=== PATIENT | male | born 1945 | race Caucasian/White ===

== ENCOUNTER → 2021-06-11 13:53 | Outpatient (BNVA) | payer BC, SELFPAY | PROVIDERS: PCP Internal Medicine; Visit Provider Urology | DX: N39.41 Urge incontinence (principal); N40.0 Benign prostatic hyperplasia without lower urinary tract symptoms | CPT/HCPCS: 51798 ==

== ENCOUNTER → 2022-06-12 14:36 | Outpatient (BNVA) | payer BC, SELFPAY | PROVIDERS: PCP Internal Medicine; Visit Provider Urology | DX: N40.0 Benign prostatic hyperplasia without lower urinary tract symptoms (principal) | CPT/HCPCS: 51798 ==

== ENCOUNTER 2023-06-09 12:44 | Outpatient (AMB) | payer BC, SELFPAY ==
--- NOTE | 2023-06-09 13:01 | MHC.OFFVIS ---
Intake Intake Visit Reasons: 1yr follow up/PVR Intake Note: Patient is Present for Follow Up Urology Medication: Dutasteride, Terazosin Antibiotic Allergies:None Blood Thinners:None PVR:0 Allergies No Known Allergies Allergy (Verified 06/11/21 13:58) HPI HPI Comments History of Present Illness Details Sebastien FLORES is a very pleasant male. He is a patient of Dr Mota. He is seen for the following urologic conditions. - lower urinary tract symptoms Doing well with terazosin 10 mg Minimal nocturia Incomplete bladder emptying Twelve month follow-up PSA PVR 0 cc Lower Urinary Tract Symptoms:? Current visit is for?further evaluation of, lower urinary tract symptoms, predominate obstructive symptoms.? Current treatment includes?08/03 , medication, alpha sandra, 5-AR.? Symptoms include?08/03 , weak stream, urine loss, nocturia (>2), and are progressing.? Results from testing include? renal/bladder us ?Yes ? date ?08/29/2019 ? PVR ?15 ? prostate size ?20 ? Testing at next visit will include?bladder scan.? [facility] Medical History (Updated 06/09/23 @ 14:00 by Rommel Metzger MD) Hyperlipidemia HTN (hypertension) BPH (benign prostatic hyperplasia) Urinary leakage Urgency incontinence Bladder outlet obstruction Surgical History History of surgery Review of Systems Const Denies chills and Denies fever(s) Card Reports no additional complaints and Denies syncope Resp Denies cough GI Denies abdominal pain and Denies heartburn Reports as per HPI and Denies change in libido Neuro Denies syncope Psych Denies change in libido Endo Denies change in libido Physical Exam Const General: cooperative, healthy appearing, comfortable and no acute distress Orientation/consciousness: patient oriented x3 HEENT Face and sinus: Yes normal facial exam Mouth: moist mucous membranes Neck Neck: Yes normal visual inspection, Yes full ROM and Yes trachea midline Chest Chest palpation & inspection: normal inspection of the chest Resp Effort & Inspection: normal respiratory effort, able to speak in complete sentences and no respiratory distress GI Inspection: Yes normal to inspection Back/Spine/Pelvis Cervical Spine: normal cervical lordosis Thoracic/Lumbar Spine: thoracic and lumbar spine normal to inspection Skin General skin exam: no rashes or lesions noted Neuro General: patient oriented x3, gait normal, tone normal and moves all extremities Extrem General: Yes normal to inspection and Yes capillary refill normal Office Procedures Post Void Residual Post Residual Void Post Void Residual (PVR): 0 [id number] Void Residual by ultrasound Assessment & Plan Assessment & Plan (1) BPH (benign prostatic hyperplasia): Code(s): N40.0 - Benign prostatic hyperplasia without lower urinary tract symptoms Qualifiers: Lower urinary tract symptom detail: urinary frequency (2) Urgency incontinence: Code(s): N39.41 - Urge incontinence Plan Twelve month follow-up Orders: Orders AMB Post Void Residual by ultrasound Today N40.0 - Benign prostatic hyperplasia without lower urinary tract symptoms Prostate Specific Antigen 364 Days N40.0 - Benign prostatic hyperplasia without lower urinary tract symptoms Patient Instructions: Imaging studies, laboratory and physical exam results were discussed and reviewed in detail. No major barriers to patient understanding were identified. An opportunity to ask questions regarding the treatment plan was provided. All questions were answered. The patient expressed understanding and agreement with the above treatment plan. The patient is aware they should contact our office by phone for worsening of their current condition or the appearance of new urologic symptoms. Compliance is encouraged with any medications and followup testing that is ordered. It is a privilege to participate in the urologic care of your patient. If you have any questions or concerns regarding treatment for the above conditions, or other urologic issues, please do not hesitate to contact me. The office telephone contact is [phone]. This note is constructed using voice recognition software. While every effort has been made to ensure accuracy senior actuarial analyst errors may have been included. Yours sincerely, Dr Rommel Metzger MD, [facility] - Urology Providers of Expert, Compassionate Care for the Genitourinary System Coding Level of Care Code Est Pt Level 4 (07690) Diagnoses BPH (benign prostatic hyperplasia) N40.0 Lower urinary tract symptom detail: urinary frequency Urgency incontinence N39.41 CPT Codes Post Residual Void - PVR CPT Code: 72791-Vmzr Void Residual by ultrasound ([id number])
== END 2023-06-09 14:01 | disposition home or self-care (01) ==
PROVIDERS: Visit Provider Urology
DX: N40.0 Benign prostatic hyperplasia without lower urinary tract symptoms (principal); N39.41 Urge incontinence
CPT/HCPCS: 99213

== ENCOUNTER → 2023-06-09 12:44 | Outpatient (BNVA) | payer BC, SELFPAY | PROVIDERS: Visit Provider Urology | DX: N40.1 Benign prostatic hyperplasia with lower urinary tract symptoms (principal); R35.0 Frequency of micturition; N39.41 Urge incontinence | CPT/HCPCS: 51798 ==

== ENCOUNTER 2023-10-08 14:29 | Outpatient (REF) | payer MEDICARE, SELFPAY ==
--- NOTE | ~2023-10-08 | US_ITS ---
EXAMINATION: US RETROPERITONEAL COMPLETE (RENAL) CLINICAL INFORMATION: BPH. COMPARISON: None available. TECHNIQUE: Real-time imaging of the kidneys and bladder. Limited visualization due to bowel gas. FINDINGS: RIGHT KIDNEY: 11.0 x 6.7 x 6.3 cm (SAG x AP x TRV). No hydronephrosis. No renal calculi. Renal cortical thickness is normal. Limited visualization. LEFT KIDNEY: 11.5 x 7.3 x 5.7 cm (SAG x AP x TRV). No hydronephrosis. No renal calculi. Renal cortical thickness is normal. Limited visualization. Upper pole 1.1 cm cyst. There is no indication for follow-up imaging. BLADDER: Moderately distended. Bilateral ureteral jets are not visualized. Prevoid bladder volume is 152 mL. Postvoid bladder volume is 12 mL. Bladder wall thickened measuring 5 mm. Diffuse trabeculations of the bladder wall. Enlarged prostate with volume 33.9 mL. Echogenic foci within the prostate are characteristic of coarse calcifications. Prominent seminal vesicles. US/US retroperitoneal comp IMPRESSION: 1. No hydronephrosis. No renal calculi. 2. Diffuse thickening of the bladder wall up to 5 mm with trabeculations. 3. Enlarged prostate with volume 33.9 mL. Echogenic foci within the prostate are characteristic of coarse calcifications. Prominent seminal vesicles.
== END 2023-10-08 14:30 | disposition home or self-care (01) ==
LOC: HO.US 14:29
PROVIDERS: PCP Internal Medicine; Visit Provider Urology
DX: N40.0 Benign prostatic hyperplasia without lower urinary tract symptoms (principal)
CPT/HCPCS: 76770

== ENCOUNTER 2023-10-19 08:41 | Outpatient (AMB) | payer MEDICARE, SELFPAY ==
--- NOTE | 2023-10-19 08:49 | MHC.OFFVIS ---
Intake Intake Visit Reasons: cytso Intake Note: Patient is Present for Cystoscopy Urology Med: Terazosin, Dutasteride Antibiotic Allergy: None Blood Thinner: Eliquis Confirmed Pharmacy: [facility] Cystoscope lot: [id number] exp:12/27/2024 Allergies No Known Allergies Allergy (Verified 10/19/23 08:54) HPI HPI Comments History of Present Illness Details Sebastien FLORES is a very pleasant male. He is a patient of Dr Mota. He is seen for the following urologic conditions. - lower urinary tract symptoms Recent issues with control of urination particularly at night On exam today has 1 to 2+ edema bilateral ankles Discussed sympathetic tone with fluid return Encouraged positional drainage in the afternoon minimize nighttime urination Discussed recent bladder ultrasound. Shows thickening with mild trabeculation. 40 cc prostate. Calcification. Cystoscopy today with grade 2 trabeculation. Minimal median lobe. Discussed potential GreenLight laser incision of the prostate. Has upcoming orthopedic assessment for hip replacement. He will contact us regarding timing. PVR 0 cc Lower Urinary Tract Symptoms:? Current visit is for?further evaluation of, lower urinary tract symptoms, predominate obstructive symptoms.? Current treatment includes?08/03 , medication, alpha sandra, 5-AR.? Symptoms include?08/03 , weak stream, urine loss, nocturia (>2), and are progressing.? Results from testing include? renal/bladder us ?Yes ? date ?08/29/2019 ? PVR ?15 ? prostate size ?20 ? Testing at next visit will include?bladder scan.? PFSH Medical History Hyperlipidemia HTN (hypertension) BPH (benign prostatic hyperplasia) Urinary leakage Urgency incontinence Bladder outlet obstruction Surgical History History of surgery Review of Systems Const Denies chills and Denies fever(s) Card Reports no additional complaints and Denies syncope Resp Denies cough GI Denies abdominal pain and Denies heartburn Reports as per HPI and Denies change in libido Neuro Denies syncope Psych Denies change in libido Endo Denies change in libido Physical Exam Const General: cooperative, healthy appearing, comfortable and no acute distress Orientation/consciousness: patient oriented x3 HEENT Face and sinus: Yes normal facial exam Mouth: moist mucous membranes Neck Neck: Yes normal visual inspection, Yes full ROM and Yes trachea midline Chest Chest palpation & inspection: normal inspection of the chest Resp Effort & Inspection: normal respiratory effort, able to speak in complete sentences and no respiratory distress GI Inspection: Yes normal to inspection Back/Spine/Pelvis Cervical Spine: normal cervical lordosis Thoracic/Lumbar Spine: thoracic and lumbar spine normal to inspection Skin General skin exam: no rashes or lesions noted Neuro General: patient oriented x3, gait normal, tone normal and moves all extremities Extrem General: Yes normal to inspection and Yes capillary refill normal Office Procedures Cystoscopy Consent Discussed risk and benefit or proposed procedure with the patient. Information consent for procedure given to the patient. Discussed technical aspects, risks, benefits and alternatives in full. Addressed all of the patient's questions and concerns regarding the procedure. The patient demonstrated knowledge and understanding. They wish to proceed with this procedure. Preparation The patient was prepped in the usual manner. A university services program associate was present and in the room. Genitalia was prepped with betadine solution in a sterile manner. Lidocaine Jelly 2% was placed into the urethra and 16Fr flexible Olympus cystoscope was inserted into the meatus after adequate lubrication. Procedure Meatus uncircumcised Urethra anterior and posterior urethra normal, annular stricture Prostatic Urethra elongated, no medican lobe Bladder examination with retroflexion of cystoscope Bladder Orifices normal shape and position Bladder Capacity medium Trabeculations Grade 2 Cellule Formation Yes Diverticulum Formation - Mucosal Erythema - Bladder Tumor - 16887-Pqudyhrars DISPOSABLE SCOPE [facility]-G FLEXIBLE SCOPE Procedure code (CPT) selection complete Office Meds lidocaine HCl 2 % mucosal jelly in applicator Performing Provider: Rommel Metzger MD Performing Location: [facility] [place] [facility] Administered by: Reginaldo Silveira LPN on 10/19/23 09:03 Dose Route Admin Location Dispensed Lot Number Expiration Date ND Machining Supervisor 10 mL intra-urethral 10 mL nitrofurantoin monohydrate/macrocrystals 100 mg capsule Performing Provider: Rommel Metzger MD Performing Location: [facility] [place] [facility] Administered by: Reginaldo Silveira LPN on 10/19/23 09:03 Dose Route Admin Location Dispensed Lot Number Expiration Date NDC Machining Supervisor 100 mg PO 1 cap naproxen 500 mg tablet Performing Provider: Rommel Metzger MD Performing Location: [facility] [place] [facility] Administered by: Reginaldo Silveira LPN on 10/19/23 09:03 Dose Route Admin Location Dispensed Lot Number Expiration Date NDC Machining Supervisor 500 mg PO 1 tab Results AMB Urinalysis, Automated UA Leukoctes 0 Nereyda/uL Last Edit by AFSHAN Hawkins on 10/19/23 09:03 UA Nitrite Negative Last Edit by AFSHAN Hawkins on 10/19/23 09:03 UA Urobilinogen 0.2 mg/dL Last Edit by AFSHAN Hawkins on 10/19/23 09:03 UA Protein 15 mg/dL Last Edit by AFSHAN Hawkins on 10/19/23 09:03 UA pH 5.0 Last Edit by AFSHAN Hawkins on 10/19/23 09:03 UA Blood 0 Reinaldo/uL Last Edit by AFSHAN Hawkins on 10/19/23 09:03 UA Specific [place] 1.030 Last Edit by AFSHAN Hawkins on 10/19/23 09:03 UA Ketone Negative Last Edit by AFSHAN Hawkins on 10/19/23 09:03 UA Bilirubin 0 mg/dL Last Edit by AFSHAN Hawkins on 10/19/23 09:03 UA Glucose 0 mg/dL Last Edit by AFSHAN Hawkins on 10/19/23 09:03 Results Reviewed Results Reviewed: Laboratory Last Values Urine pH (Auto) 5.0 10/19/23 08:55 Specific [place] (Auto) 1.030 10/19/23 08:55 Urine Protein (Auto) 15 mg/dL 10/19/23 08:55 Glucose (UA)(Auto) 0 mg/dL 10/19/23 08:55 Urine Ketones (Auto) Negative 10/19/23 08:55 Urine Blood (Auto) 0 Reinaldo/uL 10/19/23 08:55 Urine Nitrite (Auto) Negative 10/19/23 08:55 Urine Bilirubin (Auto) 0 mg/dL 10/19/23 08:55 Urine Urobilinogen (Auto) 0.2 mg/dL 10/19/23 08:55 Leukocyte Esterase (Auto) 0 Nereyda/uL 10/19/23 08:55 Assessment & Plan Assessment & Plan (1) Urgency incontinence: Code(s): N39.41 - Urge incontinence (2) BPH (benign prostatic hyperplasia): Code(s): N40.0 - Benign prostatic hyperplasia without lower urinary tract symptoms Qualifiers: Lower urinary tract symptom detail: urinary frequency Plan Would likely benefit from transurethral incision of the prostate Discussed Procedure Has upcoming orthopedic evaluation Will call once this has been confirmed Orders: Orders AMB Urinalysis Automated Today Z13.9 - Encounter for screening, unspecified AMB Cystoscopy Today N40.0 - Benign prostatic hyperplasia without lower urinary tract symptoms Patient Instructions: Imaging studies, laboratory and physical exam results were discussed and reviewed in detail. No major barriers to patient understanding were identified. An opportunity to ask questions regarding the treatment plan was provided. All questions were answered. The patient expressed understanding and agreement with the above treatment plan. The patient is aware they should contact our office by phone for worsening of their current condition or the appearance of new urologic symptoms. Compliance is encouraged with any medications and followup testing that is ordered. It is a privilege to participate in the urologic care of your patient. If you have any questions or concerns regarding treatment for the above conditions, or other urologic issues, please do not hesitate to contact me. The office telephone contact is [phone]. This note is constructed using voice recognition software. While every effort has been made to ensure accuracy telephone directory deliverer errors may have been included. Yours sincerely, Dr Rommel Metzger MD, [facility] - Urology Providers of Expert, Compassionate Care for the Genitourinary System Coding Level of Care Code Est Pt Level 4 (88669) Diagnoses Urgency incontinence N39.41 BPH (benign prostatic hyperplasia) N40.0 Lower urinary tract symptom detail: urinary frequency CPT Codes Cystoscopy - CPT: 53486-[id number] ([id number])
== END 2023-10-19 10:05 | disposition home or self-care (01) ==
LOC: HO.HUSH 08:42
PROVIDERS: PCP Internal Medicine; Visit Provider Urology
DX: N39.41 Urge incontinence (principal); N40.0 Benign prostatic hyperplasia without lower urinary tract symptoms; Z13.9 Encounter for screening, unspecified
CPT/HCPCS: 52000; 99214

== ENCOUNTER → 2023-10-19 08:41 | Outpatient (BNVA) | payer MEDICARE, SELFPAY | PROVIDERS: PCP Internal Medicine; Visit Provider Urology | DX: N39.41 Urge incontinence (principal); N40.0 Benign prostatic hyperplasia without lower urinary tract symptoms | CPT/HCPCS: 52000; 81003; 99212 ==

== ENCOUNTER 2023-12-06 10:10 | Day surgery (SDC) | payer MEDICARE, SELFPAY ==
[2023-12-06] VITALS (8 sets, daily range): BP systolic 140–158; BP diastolic 63–87; PULSE 67–76; RESP 16–20; TEMP 36.1–37.1; O2SAT 96–99; BMI 26.1
--- NOTE | 2023-12-06 10:50 | HO.ANESPROP2 ---
[facility] Active Problems Active Problems: All Active Problems Urgency incontinence (Acute) BPH (benign prostatic hyperplasia) (Acute) Past Medical History Medical History Hyperlipidemia HTN (hypertension) BPH (benign prostatic hyperplasia) Urinary leakage Urgency incontinence Bladder outlet obstruction Family History Family history of problems with anesthesia: No Surgical History Surgical History History of surgery History of Problems with Anesthesia: No Social History Social History Patient Tobacco Use Status: Never used Tobacco Meds Allergies Allergy/AdvReac Type Severity Reaction Status Date / Time No Known Allergies Allergy Verified 12/06/23 11:06 Home Medications ?Medication ?Instructions ?Recorded ?Confirmed ?Last Taken ?Type apixaban 5 mg tablet (Eliquis) 5 mg PO BID 06/11/21 12/06/23 11/30/23 History chlorthalidone 25 mg tablet 25 mg PO DAILY 06/11/21 12/06/23 Unknown History dutasteride 0.5 mg capsule 0.5 mg PO DAILY 06/11/21 12/06/23 Unknown History metoprolol succinate 100 mg 100 mg PO DAILY 06/11/21 12/06/23 Unknown History tablet,extended release 24 hr peg 3350 240 gram-electrolytes 4,000 ml PO DIRECTED 06/11/21 12/06/23 Unknown History 22.72 gram-6.72 g-5.84 g powdr for soln (Gavilyte-C) rosuvastatin 40 mg tablet 40 mg PO DAILY 06/11/21 12/06/23 Unknown History Exam Airway Mallampati Class: II TM Dist: >3cm Neck ROM: Full Heart: RRR Lungs: CTA Assessment and Plan Assessment Anesthesia Assessment: Anesthesia Plan Discussed Final Anesthetic Review Family History of Problems with Anesthesia: No History of Problems with Anesthesia: No NPO: Yes ASA Class: II Final Preanesthetic Review: Meds/Allgs Chart Reviewed, Consent Obtained/Reviewed and Anes Risks/Benef Reviewed Patient Risk: Intermediate Procedure Risk: Low Anesthetic Plan Anesthetic Plan: GA Disposition: Standard PACU
[2023-12-06] MEDS: Lactated Ringers 1,000 ML 80 ML IVCONT (10:55)
--- NOTE | 2023-12-06 11:59 | MHC.SHP ---
Pre-Procedural Eval Section A - 24 Hr Update-Section A only Date of Service: 12/06/23 The patient is an INPATIENT: No Changes since office visit: No Cold of Flu in the past 2 weeks, No New Medical Problems, No Changes in Medication and No Patient answered all questions The patient has been examined within 24 hours of the surgical procedure. The History & Physical has been completed within 30 days and I have reviewed it.: No Section B - Complete if H&P > 30 days Chief Complaint: Benign prostatic hyperplasia without lower urinary Details of Present Illness: Progressive bladder outlet obstruction Relevant Family History (Specify if Yes): No Relevant Social History: None Present Medications: see Short Stay Collaborative assessment Medical History: No relevant PMH History of Previous Operations: No relevant previous surgery Allergies: Allergies Allergy/AdvReac Type Severity Reaction Status Date / Time No Known Allergies Allergy Verified 12/06/23 11:06 Review of Systems Sugical H&P ROS: Negative: Constitution, Cardiovascular, Respiratory, Neurological, Psychiatric, Hem-Onc, Allergic/Immunologic, Gastrointestinal, Genitourinary, Musculoskeletal, Integumentary, Endocrine and Eyes/Ears/Nose/Throat Exam Surgical H&P Exam: Normal: HEENT, Normal: Heart, Normal: Lungs, Normal: Extremities, Normal: Abdomen, Normal: Skin and Normal: Neurological Plan Diagnosis/Plan: Unchanged (Cystoscopy with GreenLight laser with the prostate, possible transurethral incision of the prostate) I have reviewed the history and physical and performed a pertinent physical examination on my patient. No changes have occurred unless specified. Time Spent With Patient Time: Total time managing care of this patient today ____ minutes.
--- NOTE | 2023-12-06 12:40 | P.OP_ITS ---
Operative Note Operative Note Date of Service: 12/06/23 Narrative: PreOperative Diagnosis: Bladder outlet obstruction Post Operative Diagnosis: Bladder outlet obstruction Procedure: GreenLight Laser Enucleation of the prostate CPT 97217 Surgeon: Dr Rommel Metzger Anesthesia: General Indications for procedure: Progressive symptoms on alpha blockers History of bladder outlet obstruction. Treated with alpha-sandra and other medications. Still with symptoms. On cystoscopy in office has tight bladder neck. Recommendation for prostate procedure with laser enucleation of prostate. Risks and benefits have been discussed. Focus was placed on development of retrograde ejaculation which is a normal part of this procedure. Procedure: After informed consent was verified the patient was brought to the operating room and placed in a supine position. Anesthesia was administered per protocol. Patient was placed in modified dorsal lithotomy position and prepped and draped in a sterile fashion. Safety pause time-out was confirmed. Antibiotics have been given. A Twenty-four Albanian laser cystoscope was inserted per urethra. No abnormalities were found of the anterior and bulbar urethra. The bladder was examined and both ureteric orifices were seen in their normal positions away from the area of interest. Grade 2 trabeculation. Debris within base of bladder. Erythema of bladder lining Using a GreenLight laser with settings of 80 w incisions were made at the 5 and 7 o'clock position. The incisions were taken down from the bladder neck down to the level of the veru. These were gradually deepened in order to define the lateral aspects of the median lobe area. Once clearly defined they will also extended in the lateral directions in order to create a deep groove. The median lobe was then ablated and enucleated tissue released into the bladder with the laser power increased to 120 W. Multiple small prostate stones seen at the surgical capsule throughout the median lobe area of the prostate Minimal lateral lobes. When this was had been completed debris and pieces of prostate were removed from the bladder with irrigation. Both ureteric orifices were reviewed again in shown to be patent in away from any areas of energy damage. The apical area was reviewed in any stray ooze was controlled. A 22 Albanian 30 cc balloon Barfield catheter was placed over a stylet into the bladder. Clear efflux was obtained upopn irrigation with a Rachid piston syringe. 30 cc was placed in the balloon and gentle traction was placed. A snap was used to hold tension on the catheter to control bleeding during patient moved and transported. A drainage bag was placed. Once transportation is complete to the PACU the snap will be removed. The patient tolerated the procedure well, he was extubated in the operating and transferred in a stable condition to the recovery area. Total Power 22 kW Lasing time 4:30 Pathology: Prostate tissue Drains: Barfield catheter
== END 2023-12-06 14:25 | disposition home or self-care (01) ==
PROVIDERS: PCP Internal Medicine; Visit Provider Urology
PROC: (CPT 52648; principal; 2023-12-06 12:30)
DX: N40.1 Benign prostatic hyperplasia with lower urinary tract symptoms (principal); N32.0 Bladder-neck obstruction; N39.41 Urge incontinence; N42.0 Calculus of prostate; N32.89 Other specified disorders of bladder; I10 Essential (primary) hypertension; E78.5 Hyperlipidemia, unspecified; Z79.899 Other long term (current) drug therapy
CPT/HCPCS: 52649; J1100; J1956; J2250; J2405; J2704; J3010

== ENCOUNTER → 2023-12-06 10:10 | Outpatient (BNV) | payer MEDICARE, SELFPAY | PROVIDERS: PCP Internal Medicine; Visit Provider Urology | DX: N40.0 Benign prostatic hyperplasia without lower urinary tract symptoms (principal) | CPT/HCPCS: 52649 ==

== ENCOUNTER → 2023-12-08 10:10 | Outpatient (BNVA) | payer MEDICARE, SELFPAY | PROVIDERS: PCP Internal Medicine; Visit Provider Urology ==

== ENCOUNTER 2024-01-11 09:30 | Outpatient (AMB) | payer MEDICARE, SELFPAY ==
--- NOTE | 2024-01-11 09:36 | MHC.OFFVIS ---
Intake Visit Reasons: [facility] follow up Intake Note: Patient is Present for Follow Up Urology Medication: Dutasteride, Terazosin Antibiotic Allergies:None Blood Thinners:None PVR:77 Allergies No Known Allergies Allergy (Verified 12/06/23 11:06) Medication List - Last Reconciled 01/11/24 by Rommel Metzger MD apixaban (Eliquis) 5 mg PO BID chlorthalidone 25 mg PO DAILY metoprolol succinate ER 100 mg PO DAILY peg 3350-electrolytes 240-22.72-6.72 -5.84 gram (Gavilyte-C) 4,000 mL PO DIRECTED rosuvastatin 40 mg PO DAILY sulfamethoxazole-trimethoprim 400-80 mg (Bactrim) 1 tab PO BEDTIME 90 days sulfamethoxazole-trimethoprim 800-160 mg (Bactrim DS) 1 tab PO BID 7 days terazosin 10 mg (2 x 5 mg) PO BEDTIME 90 days HPI Comments Details: Sebastien FLORES is a very pleasant male. He is a patient of Dr Mota. He is seen for the following urologic conditions. - lower urinary tract symptoms Follow-up from [facility] laser prostate incision Was noted to have chronic cystitis at time of procedure Was placed on suppression trimethoprim Still with urgency particularly nocturia Has restricted physical access to bathroom Trial Myrbetriq Continue with suppression trimethoprim Cystoscopy with grade 2 trabeculation. Minimal median lobe. PVR 70 cc Lower Urinary Tract Symptoms:? Current visit is for?further evaluation of, lower urinary tract symptoms, predominate obstructive symptoms.? Current treatment includes?08/03 , medication, alpha sandra, 5-AR.? Symptoms include?08/03 , weak stream, urine loss, nocturia (>2), and are progressing.? Results from testing include? renal/bladder us ?Yes ? date ?08/29/2019 ? PVR ?15 ? prostate size ?20 ? Testing at next visit will include?bladder scan.? [facility] Medical History Hyperlipidemia HTN (hypertension) BPH (benign prostatic hyperplasia) Urinary leakage Urgency incontinence Bladder outlet obstruction Surgical History History of surgery Social History Patient Tobacco Use Status: Never used Tobacco Review of Systems Const Denies chills and Denies fever(s) Card Reports no additional complaints and Denies syncope Resp Denies cough GI Denies abdominal pain and Denies heartburn Reports as per HPI and Denies change in libido Neuro Denies syncope Psych Denies change in libido Endo Denies change in libido Physical Exam Const General: cooperative, healthy appearing, comfortable and no acute distress Orientation/consciousness: patient oriented x3 HEENT Face and sinus: Yes normal facial exam Mouth: moist mucous membranes Neck Neck: Yes normal visual inspection, Yes full ROM and Yes trachea midline Chest Chest palpation & inspection: normal inspection of the chest Resp Effort & Inspection: normal respiratory effort, able to speak in complete sentences and no respiratory distress GI Inspection: Yes normal to inspection Back/Spine/Pelvis Cervical Spine: normal cervical lordosis Thoracic/Lumbar Spine: thoracic and lumbar spine normal to inspection Skin General skin exam: no rashes or lesions noted Neuro General: patient oriented x3, gait normal, tone normal and moves all extremities Extrem General: Yes normal to inspection and Yes capillary refill normal Office Procedures Post Void Residual Post Residual Void Post Void Residual (PVR): 77 50910-Xppc Void Residual by ultrasound Results AMB Urinalysis, Automated UA Leukoctes 70 Nereyda/uL Last Edit by Margaret Solo CMA on 01/11/24 10:12 UA Nitrite Negative Last Edit by Margaret Solo CMA on 01/11/24 10:12 UA Urobilinogen 0.2 mg/dL Last Edit by Margaret Solo CMA on 01/11/24 10:12 UA Protein 30 mg/dL Last Edit by Margaret Solo CMA on 01/11/24 10:12 UA pH 6.0 Last Edit by Margaret Solo CMA on 01/11/24 10:12 UA Blood 200 Reinaldo/uL Last Edit by Margaret Solo CMA on 01/11/24 10:12 UA Specific [place] 1.020 Last Edit by Margaret Solo CMA on 01/11/24 10:12 UA Ketone Negative Last Edit by Margaret Solo CMA on 01/11/24 10:12 UA Bilirubin 0 mg/dL Last Edit by Margaret Solo CMA on 01/11/24 10:12 UA Glucose 0 mg/dL Last Edit by Margaret Solo CMA on 01/11/24 10:12 Results Reviewed Results Reviewed: Laboratory Last Values Urine pH (Auto) 6.0 01/11/24 10:06 Specific [place] (Auto) 1.020 01/11/24 10:06 Urine Protein (Auto) 30 mg/dL 01/11/24 10:06 Glucose (UA)(Auto) 0 mg/dL 01/11/24 10:06 Urine Ketones (Auto) Negative 01/11/24 10:06 Urine Blood (Auto) 200 Reinaldo/uL 01/11/24 10:06 Urine Nitrite (Auto) Negative 01/11/24 10:06 Urine Bilirubin (Auto) 0 mg/dL 01/11/24 10:06 Urine Urobilinogen (Auto) 0.2 mg/dL 01/11/24 10:06 Leukocyte Esterase (Auto) 70 Nereyda/uL 01/11/24 10:06 Assessment & Plan Assessment & Plan (1) Urgency incontinence: Code(s): N39.41 - Urge incontinence Category: Medical (2) BPH (benign prostatic hyperplasia): Code(s): N40.0 - Benign prostatic hyperplasia without lower urinary tract symptoms Category: Medical Qualifiers: Lower urinary tract symptom detail: urinary frequency (3) Chronic cystitis: Code(s): N30.20 - Other chronic cystitis without hematuria Category: Medical Plan Trial Myrbetriq Two month follow-up Orders: Orders AMB Post Void Residual by ultrasound 01/11/24 N39.8 - Other specified disorders of urinary system AMB Urinalysis Automated 01/11/24 Z13.9 - Encounter for screening, unspecified AMB Post Void Residual by ultrasound 01/11/24 N39.41 - Urge incontinence Medications: New mirabegron ER (Myrbetriq) 25 mg PO DAILY 30 tabs 1RF 30 days N39.41 - Urge incontinence, R39.15 - Urgency of urination, N30.10 - Interstitial cystitis (chronic) without hematuria, R35.1 - Nocturia, N32.81 - Overactive bladder Patient Instructions: Imaging studies, laboratory and physical exam results were discussed and reviewed in detail. No major barriers to patient understanding were identified. An opportunity to ask questions regarding the treatment plan was provided. All questions were answered. The patient expressed understanding and agreement with the above treatment plan. The patient is aware they should contact our office by phone for worsening of their current condition or the appearance of new urologic symptoms. Compliance is encouraged with any medications and followup testing that is ordered. It is a privilege to participate in the urologic care of your patient. If you have any questions or concerns regarding treatment for the above conditions, or other urologic issues, please do not hesitate to contact me. The office telephone contact is [phone]. This note is constructed using voice recognition software. While every effort has been made to ensure accuracy belt turner errors may have been included. Yours sincerely, Dr Rommel Metzger MD, ZIG[facility] - Urology Providers of Expert, Compassionate Care for the Genitourinary System Coding Level of Care Code Est Pt Level 4 (35429) Diagnoses Urgency incontinence N39.41 BPH (benign prostatic hyperplasia) N40.0 Lower urinary tract symptom detail: urinary frequency Chronic cystitis N30.20 CPT Codes Post Residual Void - PVR CPT Code: 87636-Fqhf Void Residual by ultrasound ([id number])
== END 2024-01-11 10:28 | disposition home or self-care (01) ==
PROVIDERS: PCP Internal Medicine; Visit Provider Urology
DX: N39.41 Urge incontinence (principal); N40.0 Benign prostatic hyperplasia without lower urinary tract symptoms; N30.20 Other chronic cystitis without hematuria
CPT/HCPCS: 99024

== ENCOUNTER → 2024-01-11 09:30 | Outpatient (BNVA) | payer MEDICARE, SELFPAY | PROVIDERS: PCP Internal Medicine; Visit Provider Urology | DX: N39.41 Urge incontinence (principal); N40.0 Benign prostatic hyperplasia without lower urinary tract symptoms; N30.20 Other chronic cystitis without hematuria | CPT/HCPCS: 51798; 81003; 99212 ==

== ENCOUNTER 2024-06-09 13:28 | Outpatient (AMB) | payer BC, SELFPAY ==
--- NOTE | 2024-06-09 13:34 | A.OFFVIS_ITS ---
Intake Visit Reasons: 1Y PVR Intake Note: Patient is present for PVR Follow UP Urology Med: Gemtesa,Terazosin Antibiotic Allgery: None Blood Thinner: Eliquis Last PVR: 77ml Todays PVR: 0ml Senior Adults Director Required: No Automatic Driller And Reamer: Automatic Driller And Reamer Present Accompanied by: Spouse Allergies No Known Allergies Allergy (Verified 06/09/24 13:38) HPI Comments Details: Sebastien FLORES is a very pleasant male. He is a patient of Dr Mota. He is seen for the following urologic conditions. - lower urinary tract symptoms PVR today 0 cc Still waking 2-3 times at night Continue beta agonist Stay on methenamine single tab daily for next three-month Cease alpha-sandra Does note has lower limb edema. Left posterior calf weeping from skin break down. Referral to Wound Care for lower limb assessment. Lower Urinary Tract Symptoms:? Cystoscopy with grade 2 trabeculation Had laser incision of the prostate Noted chronic cystitis at time of procedure and placed on 90 days suppression trimethoprim ? Current visit is for?further evaluation of, lower urinary tract symptoms, predominate obstructive symptoms.? Current treatment includes?08/03 , medication, alpha sandra, 5-AR.? Symptoms include?08/03 , weak stream, urine loss, nocturia (>2), and are progressing.? Results from testing include? renal/bladder us ?Yes ? date ?08/29/2019 ? PVR ?15 ? prostate size ?20 ? Testing at next visit will include?bladder scan.? [facility] Medical History Hyperlipidemia HTN (hypertension) BPH (benign prostatic hyperplasia) Urinary leakage Urgency incontinence Bladder outlet obstruction Surgical History History of surgery Social History Patient Tobacco Use Status: Never used Tobacco Review of Systems Const Denies chills and Denies fever(s) Card Reports no additional complaints and Denies syncope Resp Denies cough GI Denies abdominal pain and Denies heartburn Reports as per HPI and Denies change in libido Neuro Denies syncope Psych Denies change in libido Endo Denies change in libido Physical Exam Const General: cooperative, healthy appearing, comfortable and no acute distress Orientation/consciousness: patient oriented x3 HEENT Face and sinus: Yes normal facial exam Mouth: moist mucous membranes Neck Neck: Yes normal visual inspection, Yes full ROM and Yes trachea midline Chest Chest palpation & inspection: normal inspection of the chest Resp Effort & Inspection: normal respiratory effort, able to speak in complete sentences and no respiratory distress GI Inspection: Yes normal to inspection Back/Spine/Pelvis Cervical Spine: normal cervical lordosis Thoracic/Lumbar Spine: thoracic and lumbar spine normal to inspection Skin General skin exam: no rashes or lesions noted Neuro General: patient oriented x3, gait normal, tone normal and moves all extremities Extrem General: Yes normal to inspection and Yes capillary refill normal Office Procedures Post Void Residual Post Residual Void Post Void Residual (PVR): 10 55521-Hnpi Void Residual by ultrasound Assessment & Plan Assessment & Plan (1) BPH (benign prostatic hyperplasia): Code(s): N40.0 - Benign prostatic hyperplasia without lower urinary tract symptoms Category: Medical Qualifiers: Lower urinary tract symptom detail: urinary frequency (2) Chronic cystitis: Code(s): N30.20 - Other chronic cystitis without hematuria Category: Medical Plan Referral wound clinic Six-month follow-up Orders: Orders US bladder 10/08/23 N39.41 - Urge incontinence AMB Post Void Residual by ultrasound 06/09/24 N40.0 - Benign prostatic hyperplasia without lower urinary tract symptoms Patient Instructions: Imaging studies, laboratory and physical exam results were discussed and reviewed in detail. No major barriers to patient understanding were identified. An opportunity to ask questions regarding the treatment plan was provided. All questions were answered. The patient expressed understanding and agreement with the above treatment plan. The patient is aware they should contact our office by phone for worsening of their current condition or the appearance of new urologic symptoms. Compliance is encouraged with any medications and followup testing that is ordered. It is a privilege to participate in the urologic care of your patient. If you have any questions or concerns regarding treatment for the above conditions, or other urologic issues, please do not hesitate to contact me. The office telephone contact is [phone]. This note is constructed using voice recognition software. While every effort has been made to ensure accuracy records analysis manager errors may have been included. Yours sincerely, Dr Rommel Metzger MD, [facility]IG[facility] - Urology Providers of Expert, Compassionate Care for the Genitourinary System Coding Level of Care Code Est Pt Level 3 (98561) Diagnoses BPH (benign prostatic hyperplasia) N40.0 Lower urinary tract symptom detail: urinary frequency Chronic cystitis N30.20 CPT Codes Post Residual Void - PVR CPT Code: 93407-Miqu Void Residual by ultrasound ([id number])
== END 2024-06-09 14:10 | disposition home or self-care (01) ==
PROVIDERS: PCP Internal Medicine; Visit Provider Urology
DX: N40.0 Benign prostatic hyperplasia without lower urinary tract symptoms (principal); N30.20 Other chronic cystitis without hematuria
CPT/HCPCS: 99213

== ENCOUNTER → 2024-06-09 13:28 | Outpatient (BNVA) | payer BC, SELFPAY | PROVIDERS: PCP Internal Medicine; Visit Provider Urology | DX: N40.1 Benign prostatic hyperplasia with lower urinary tract symptoms (principal); R35.0 Frequency of micturition; N30.20 Other chronic cystitis without hematuria | CPT/HCPCS: 51798 ==

== ENCOUNTER 2024-12-08 13:12 | Outpatient (AMB) | payer BC, SELFPAY ==
--- NOTE | 2024-12-08 13:18 | MHC.OFFVIS ---
Intake Visit Reasons: 6m/PVR/UA Intake Note: Patient is present for 6M/PVR/UA Urology Medication: NONE Antibiotic Allergy:NONE Blood Thinner:APIXABAN TODAY'S PVR:14ML'S Legislative Correspondent Required: No Allergies No Known Allergies Allergy (Verified 12/08/24 13:20) HPI Comments Details: Sebastien FLORES is a very pleasant male. He is a patient of Dr Mota. He is seen for the following urologic conditions. - lower urinary tract symptoms PVR today 0 cc Still waking 2-3 times at night Continue beta agonist Stay on methenamine single tab daily for next three-month Cease alpha-sandra Does note has lower limb edema. Left posterior calf weeping from skin breakdown. Referral to Wound Care for lower limb assessment. Lower Urinary Tract Symptoms:? Cystoscopy with grade 2 trabeculation Had laser incision of the prostate Noted chronic cystitis at time of procedure and placed on 90 days suppression trimethoprim ? Current visit is for?further evaluation of, lower urinary tract symptoms, predominate obstructive symptoms.? Current treatment includes?08/03 , medication, alpha sandra, 5-AR.? Symptoms include?08/03 , weak stream, urine loss, nocturia (>2), and are progressing.? Results from testing include? renal/bladder us ?Yes ? date ?08/29/2019 ? PVR ?15 ? prostate size ?20 ? Testing at next visit will include?bladder scan.? [facility] Medical History Hyperlipidemia HTN (hypertension) BPH (benign prostatic hyperplasia) Urinary leakage Urgency incontinence Bladder outlet obstruction Surgical History History of surgery Social History Patient Tobacco Use Status: Never used Tobacco Office Procedures Post Void Residual Post Residual Void Post Void Residual (PVR): 14 33229-Btqu Void Residual by ultrasound Results AMB Urinalysis, Automated UA Leukoctes 0 Nereyda/uL Last Edit by MANJINDER Quintana on 12/08/24 13:36 UA Nitrite Negative Last Edit by Emanuel Elizabeth [facility] on 12/08/24 13:36 UA Urobilinogen 0.2 mg/dL Last Edit [facility] on 12/08/24 13:36 UA Protein 15 mg/dL Last Edit by Emanuel Elizabeth [facility] on 12/08/24 13:36 UA pH 6.0 Last Edit by Emanuel Elizabeth [facility] on 12/08/24 13:36 UA Blood 0 Reinaldo/uL Last Edit by Emanuel Elizabeth [facility] on 12/08/24 13:36 UA Specific [place] 1.020 Last Edit [facility] on 12/08/24 13:36 UA Ketone Negative Last Edit by Emanuel Elizabeth [facility] on 12/08/24 13:36 UA Bilirubin 0 mg/dL Last Edit by Emanuel Elizabeth [facility] on 12/08/24 13:36 UA Glucose 0 mg/dL Last Edit by Emanuel Elizabeth [facility] on 12/08/24 13:36 Assessment & Plan Assessment & Plan (1) Nocturia more than twice per night: Code(s): R35.1 - Nocturia Category: Medical Orders: Orders AMB Urinalysis Automated Today Z13.9 - Encounter for screening, unspecified Basic Metabolic Panel 2 Weeks R35.1 - Nocturia Medications: Discontinued sulfamethoxazole-trimethoprim 800-160 mg (Bactrim DS) Discontinued Reason: Doctor's Order 1 tab PO BID 7 days 14 tabs 0RF sulfamethoxazole-trimethoprim 400-80 mg (Bactrim) use daily for 3 months Discontinued Reason: Patient Completed Course 1 tab PO BEDTIME 90 days 90 tabs 0RF N30.20 - Other chronic cystitis without hematuria Coding Diagnoses Nocturia more than twice per night R35.1 CPT Codes Post Residual Void - PVR CPT Code: 82021-Dbqf Void Residual by ultrasound ([id number])
--- OUTSIDE RECORDS SUMMARY | 2024-12-08 13:55 | XMS_ITS | Clinical Summary ---
Author Organization [facility] Address [address] [place] [phone] Phone Care Team Providers Care Technology Sales Consultant Name Role Phone Ceci Mota MD Primary Care Provider [phone] Allergies No known active allergies Medications metoprolol succinate (TOPROL-XL) 25 mg 24 hr tablet Take 0.5 tablets (12.5 mg total) by mouth 1 (one) time each day. 45 tablet 3 4 Active rosuvastatin (CRESTOR) 40 mg tablet Take 1 tablet (40 mg total) by mouth 1 (one) time each day. 90 tablet 3 4 Active furosemide (LASIX) 20 mg tabletIndicatio ns:Shortness of breath,Mitral valve insufficiency, unspecified etiology Take 1 tablet (20 mg total) by mouth 1 (one) time each day. 30 each 11 4 025 Active apixaban (Eliquis) 5 mg tablet TAKE 1 TABLET BY MOUTH TWICE DAILY 180 tablet 1 5 Active apixaban (Eliquis) 5 mg tablet Take 1 tablet (5 mg total) by mouth 2 (two) times a day. 90 tablet 3 4 025 Discontinued Active Problems Problem Noted Date Diagnosed Date Mitral valve insufficiency 12/23/2023 Assessment & Plan (08/11/2024 2:12 PM EST): See plan for shortness of breath. Orders: Basic metabolic panel; Future furosemide (LASIX) 20 mg tablet; Take 1 tablet (20 mg total) by mouth 1 (one) time each day. Newly recognized heart murmur 12/23/2023 Overview (07/03/2024): Last Assessment & Plan: As below; we will update echocardiogram for further evaluation. Location of murmur is consistent with mitral valve and this may indicate worsening insufficiency. We will continue to readdress once report is reviewed. Osteoarthritis of left hip 12/23/2023 Peripheral edema 12/23/2023 Secondary hypercoagulable state ([facility] V24) Shortness of breath 12/23/2023 Overview (07/03/2024): Last Assessment & Plan: The patient presents today for preoperative cardiovascular exam with new reports of shortness of breath with exertion. However, it is difficult to tell whether this is because he is doing something more exertional than what he is typically used to whether is due to a change in his health. Further concern as presented by new murmur noted on exam; the patient does have a history of mild mitral regurgitation noted on previous echocardiogram but this murmur has not previously been documented. In combination with new shortness of breath as well as lower extremity edema, we will proceed with an echocardiogram to reevaluate for new or worsening structural heart disease. I have discussed this with Dr. Vega, the patient's primary pesticide applicator, and he is in agreement with this plan. Given his shortness of breath with exertion and history of hyperlipidemia, we must consider that this may be his anginal equivalent; EKG reviewed with Dr. Vega as well given presence of questionable Q waves in septal leads, which may be due to lead placement and. We will initiate further evaluation of this with echocardiogram and proceed with stress testing if further indicated. The patient verbalizes understanding of this and is in agreement with this plan. Assessment & Plan (08/11/2024 2:12 PM EST): Bilateral lower extremity noted. Patient has had recent EFRAIN over the summer to further evaluate for severity of MR which was noted to be moderate. At this time given his worsening swelling, slight abdominal distention and shortness of breath I am going to initiate Lasix 20 mg daily. I have asked the patient to have an updated BMP drawn in 1 week. Encouraged to continue to follow a low-sodium diet and perform daily weights. Patient will reach out to our office with a weight gain of 2 pounds in 1 day or 5 pounds in 5 days accompanied by worsening peripheral edema, shortness of breath or abdominal distention. Orders: Basic metabolic panel; Future furosemide (LASIX) 20 mg tablet; Take 1 tablet (20 mg total) by mouth 1 (one) time each day. Atrial fibrillation, persistent (CMS/HCC V24, CM S/HCC V28) 04/16/2021 Overview (07/03/2024): Rate control strategy with metoprolol Anticoagulated with apixaban Last Assessment & Plan: The patient's atrial fibrillation is rate controlled on his current dose of beta-blockade; he remains anticoagulated on full dose of apixaban which is the appropriate dose for his age, weight, and renal function. We discussed the risks and benefits of continuing with anticoagulation for cardioembolic prophylaxis and he wishes to continue with the current plan. He is aware to seek emergent medical attention for any uncontrolled bleeding, signs or symptoms of GI or other internal bleeding, or for any head injury. Assessment & Plan (08/11/2024 2:12 PM EST): Patient denies perception of arrhythmia. He presents in atrial flutter today with a controlled ventricular heart rate as outlined above. We again discussed the importance of anticoagulation to help reduce stroke. Patient adamantly admits compliance with his medications however after reaching out to the pharmacy it is unclear whether or not he is using a different pharmacy that is on file. He is unable to provide us with any other information and his is uncertain of whether or not he has been taking his medications or where he gets them filled. The patient is agreeable to continue/resume anticoagulation therapy. Subsequently, we have sent a prescription for Eliquis 5 mg to his pharmacy of choice. Educated on risks and benefits of continuing with anticoagulation including increased risk for hemorrhage and decreased risk for stroke. Encouraged to seek emergent medical attention should the patient sustain a fall involving a head strike. The patient understands these risks and agrees to continue. Orders: ECG 12 lead Basic metabolic panel; Future Essential hypertension 04/16/2021 Overview (07/03/2024): Last Assessment & Plan: Blood pressure is well-controlled on current medical therapy; continue metoprolol. Mixed hyperlipidemia 04/16/2021 Overview (07/03/2024): Last Assessment & Plan: Most recent lipid panel revealing an LDL of 76; continue rosuvastatin. Assessment & Plan (08/11/2024 2:12 PM EST): He will continue on his current dose of rosuvastatin and be mindful of his dietary fat intake. Thoracic aortic aneurysm without rupture (CMS/HC C V24) 04/16/2021 Overview (07/03/2024): 09/2020 stable aortic root at 4.2 cm and ascending aorta at 4.4 cm Last Assessment & Plan: Most recent echocardiogram 04/29/2023 with stable findings; we will continue to monitor this with serial imaging. Surgical History Surgery Date Site/Laterality Comments ROTATOR CUFF REPAIR 11/2005 PROCEDURE: HISTORICAL ROTATOR CUFF REPAIR FOOT SURGERY Left PROCEDURE: HISTORICAL FOOT SURGERY; COMMENT: Fracture of foot Medical History Medical History Date Comments Osteoarthritis of hip DX:Osteoar thritis of hip; COMMENT: RT Social History Tobacco Use Types Packs/Day Years Used Date Smoking Tobacco: Never Smokeless Tobacco: Never Alcohol Use Standard Drinks/Week Comments Yes 0 (1 standard drink = 0.6 oz pur e alcohol) wine daily Sex and Gender Information Value Date Recorded Sex Assigned at Male 06/16/2024 1:56 PM EDT Legal Sex Male 7:01 AM EST Gender Identity Male 06/16/2024 1:56 PM EDT Sexual Orientation Straight 06/16/2024 1: 56 PM EDT Obstetrics History Last Filed Vital Signs Vital Sign Reading Time Taken Comments Blood Pressure 136/56 08/11/2024 9:56 AM EST Pulse 72 12/23/2023 9:19 AM EDT Temperature - - Respiratory Rate - - Oxygen Saturation 98% 08/11/2024 9:56 AM EST Inhaled Oxygen Concentration - - Weight 74.8 kg (165 lb) 08/11/2024 9:56 AM EST Height 167.6 cm (5' 6 ) 12/24/2023 9:45 AM EDT Body Mass Index 26.63 12/24/2023 9:45 AM EDT Plan of Treatment Upcoming Encounters Date Type Department Care Team (Late st Contact Info) Description 12/13/2024 9:10 AM EDT Office Visit [facility] [address] [place] [address] Keena Glover, DARNELL [address] [place] [address] Health Maintenance Due Date Last Done Comments DTaP,Tdap,and Td Vaccines (1 - Tdap) 02/05/1963 Pneumococcal Vaccine: 50+ Years (1 of 1 - PCV) 02/05/1994 RSV Immunization Adult Patients (1 - 1-dose 75+ series) 02/05/2019 Cholesterol Screening (Lipid Panel) 07/25/2022 Depression Screening 07/25/2022 Falls Risk Assessment 07/25/2022 Medicare Annual Wellness Visit 07/25/2022 Social Influencers of Health Screening 07/25/2022 COVID-19 Vaccine ( season) 2024 05/17/2024, 07/30/2023, 05/18/2022, Additional history exists Hypertension/CHF/CAD Annual BMP Blood Test 08/25/2025 08/25/2024 Zoster Vaccines Completed 04/23/2023, 09/11/2022 Influenza Vaccine Completed 05/17/2024, , 05/18/2022, Additional history exists HIB Vaccines Aged Out No longer eligi ble based on patient's age to complete this topic HPV Vaccines Aged Out No longer eligi ble based on patient's age to complete this topic Hepatitis A Vaccines Aged Out No long er eligible based on patient's age to complete this topic Hepatitis B Vaccines Aged Out No long er eligible based on patient's age to complete this topic IPV Vaccines Aged Out No longer eligi ble based on patient's age to complete this topic MMR Vaccines Aged Out No longer eligi ble based on patient's age to complete this topic Meningococcal ACWY Vaccine Aged Out N o longer eligible based on patient's age to complete this topic Meningococcal B Vaccine Aged Out No l onger eligible based on patient's age to complete this topic RSV Immunization Patients Under 20 months Aged Out No longer eligible based on patient's age to complete this topic Varicella Vaccines Aged Out No longer eligible based on patient's age to complete this topic Procedures Procedure Name Priority Date/Time Associated Diagnosis Comments BASIC METABOLIC PANEL Routine 08/25/2024 9:55 AM EST from Last 3 Months or Most Recently Relevant to Health Maintenance Results * (ABNORMAL) Basic metabolic panel (08/25/2024 9:55 AM EST) Glucose 105(H) 70 - 99 mg/dL [facility] Blood Urea Nitrogen (BUN) 25 8 - 27 mg/dL [facility] Creatinine 1.06 0.76 - 1.27 mg/dL [facility] 1 eGFR 71 >59 mL/min/1.7 3 [facility] 1 BUN/Creatinine Ratio 24 10 - 24 [facility] 1 Sodium 141 134 - 144 mmol/L [facility] Potassium 4.9 3.5 - 5.2 mmol/L [facility] 1 Chloride 103 96 - 106 mmol/L [facility] 1 Carbon Dioxide 21 20 - 29 mmol/L [facility] 1 Calcium 9.4 8.6 - 10.2 mg/dL [facility] 1 08/25/2024 9:55 AM EST 08/25/2024 Narrative [facility] 1 - 08/26/2024 1:05 AM EST Performed at: ??01 - [facility] [address] ??[id number] Tare Weigher: Janett Velazquez MD, Phone: ??[phone] us Keena Glover CALENDER ROLL OPERATOR LAB BLOOD ORDERABLES F inal Result [facility] 1 from Last 3 Months or Most Recently Relevant to Health Maintenance Insurance [employer] - [place] MEDICARE ADVANTAGE Care Teams Technology Sales Consultant Relationship Specialty Start Date End Date Ceci Mota MD [address] [place] [address] PCP - General 09/26/13
--- OUTSIDE RECORDS SUMMARY | 2024-12-08 13:55 | XMS_ITS | Encounter Summary ---
Author Organization [facility] [place] [address] Care Team Providers Care Employment Specialist/Program Manager Name Role Phone Ceci Mota MD Primary Care Provider [phone] Encounter Details Date Type Department Care Team (Late st Contact Info) Description 06/16/2024 1:56 PM EDT Hospital Encounter TH HISTORIC ENCOUNTERS EASTERN CONVERSION ONLY Danish Huffman MD [address] [facility] [address] [place] [address] Social History Tobacco Use Types Packs/Day Years [...] Orientation Straight 06/16/2024 1: 56 PM EDT documented as of this encounter Plan of Treatment Upcoming Encounters Date Type Department Care Team (Late st Contact Info) Description 12/13/2024 9:10 AM EDT Office Visit [facility] - [address] [facility] [address] [place] [phone] Keena Glover NP [address] [place] [address] (Znyd) documented as of this encounter Procedures Procedure Name Priority Date/Time Associated Diagnosis Comments DR ABDOMEN FLAT AND ERECT Routine 06/16/2024 2:37 PM EDT documented in this encounter Results * DR ABDOMEN FLAT AND ERECT (06/16/2024 2:37 PM EDT) Anatomical Region Laterality Modality Radiographic Julianna ging 06/16/2024 2:02 PM EDT Narrative 06/16/2024 2:37 PM EDT [facility] Diagnostic Imaging Department [address] [place] [id number] Patient: ??EARLMALIA LEMUS Alberto ?/Age/Sex: 1945 - 79 - M Unit#: ??[id number] ? Location/Status: ??SPDIGEN/REG CLI ? Mnemonic/Ordering Site: ??[facility]/SPDI Ordering Physician: ??DANISH HUFFMAN MD Abdomen Flat and Erect - 06/16/24 - 5280 Report Status:Signed INDICATION: Constipation with abdominal pain FINDINGS: Supine and erect views of the abdomen were obtained. CT scan of the abdomen from June 10, 2023 reviewed. No evidence of free air or significant air-fluid levels. No evidence of air- filled, dilated loops of small bowel. Moderate formed fecal material in the cecum/ascending colon as well as in the rectum. Bony structures bony structures demonstrate osteopenia, degenerative and scoliotic changes with bilateral hip replacements. IMPRESSION: No evidence of free air or obstruction. Dictating Physician: ??BEV GRAHAM MD Electronically Signed by: ??BEV GRAHAM MD Dic Date/Time: ??06/16/24 1436 Sign date/Time: ??06/16/24 1437 Procedure Note Bev Graham MD - 06/17/2024 [facility] Diagnostic Imaging Department [address] [place] [address] Patient: MALIA HUSTON Alberto /Age/Sex: 1945 - 79 - M Unit#: [id number] Location/Status: SPDIGEN/REG CLI Mnemonic/Ordering Site: [facility] Ordering Physician: DANISH HUFFMAN MD DR Abdomen Flat and Erect - 06/16/24 - 0064 Report Status:Signed INDICATION: Constipation with abdominal pain FINDINGS: Supine and erect views of the abdomen were obtained. CT scan ofthe abdomen from June 10, 2023 reviewed. No evidence of free air or significant air-fluid levels. No evidence ofair- filled, dilated loops of small bowel. Moderate formed fecal material inthe cecum/ascending colon as well as in the rectum. Bony structures bony structures demonstrate osteopenia, degenerative and scoliotic changes with bilateral hip replacements. IMPRESSION: No evidence of free air or obstruction. Dictating Physician: BEV GRAHAM MD Electronically Signed by: BEV GRAHAM MD Dic Date/Time: 06/16/24 1436 Sign date/Time: 06/16/24 1437 Danish Huffman MD IMG XR PROCEDURES Final Result documented in this encounter Visit Diagnoses Not on filedocumented in this encounter Care Teams Employment Specialist/Program Manager Relationship Specialty Start Date End Date Ceci Mota MD [address] [place] [address] PCP - General 09/26/13 documented as of this encounter
--- OUTSIDE RECORDS SUMMARY | 2024-12-08 13:55 | XMS_ITS | Patient Health Record ---
Author Organization [facility] Address [address] [facility] [place] [address] Care Team Providers Care Director Of Social Work Name Role Phone Svetlana MCCRAY, Ceci Primary Care Provider Elda Piedra Unavailable [phone] Allergies No Known Allergies Reason For Referral No Information Medications Medication SIG (Take, Route, Frequency, Duration) Notes Start Date End Date Status Metoprolol Succinate 100 MG 1 capsule Or ally Once a day for 30 day(s) Active Eliquis 5 MG as directed Orally Active Chlorthalidone 25 MG 1 tablet in the mor clare with food Orally Once a day for 30 day(s) Active Rosuvastatin Calcium 40 MG 1 tablet Oral ly Once a day for 30 day(s) Active Immunizations Vaccine Route Administration Date Status Comme nts COVID-19 Pfizer BioNTech Vaccine Unknown 09/20/2020 Administered 1st injection 0 08/30/20 Social History Tobacco Use: Social History Observation Description Date Details (start date - stop date) Never Smoker NA - NA Tobacco Use/Smoking Question Answer Notes Are you a: nonsmoker Additional Findings: Tobacco Non-User Aggressive non-smoker Alcohol Screen Question Answer Notes Did you have a drink containing alcohol in the p ast year? Yes Points 0 Interpretation Negative Tobacco use other than smoking: Question Answer Notes Are you an other tobacco user? No Problems Problem Type SNOMED Code ICD Code Onset Dates Problem Status W/U Status Risk Notes Problem Acquired hammer toe of left foot ([id number]) Other hammer toe(s) (acquired), left foot (M20.42) Active confirmed Plan Of Treatment No Information Insurance Providers Payer Name Payer Address Payer Phone Subscriber Number Group Number Insured Name Patient Relationship to Insured Coverage Start Date Coverage End Date [facility] 65 Medicare Preferred [address] [place] [address] [id number] Sebastien Huston Self - patient is the insured Medical (General) History Medical History History ICD Code High blood pressure Lyme disease Measles Mumps Chicken pox Joint implants/screws Surgical History Surgery Date(Month/Year) rotator cuff tear repair left shoulder fractured calcaneus
== END 2024-12-08 14:09 | disposition home or self-care (01) ==
PROVIDERS: PCP Internal Medicine; Visit Provider Urology
DX: Z13.9 Encounter for screening, unspecified (principal)

== ENCOUNTER → 2024-12-08 13:12 | Outpatient (BNVA) | payer BC, SELFPAY | PROVIDERS: PCP Internal Medicine; Visit Provider Urology | DX: N40.1 Benign prostatic hyperplasia with lower urinary tract symptoms (principal); R35.1 Nocturia | CPT/HCPCS: 51798; 81003 ==

== ENCOUNTER 2025-06-15 14:14 | Outpatient (AMB) | payer BC, SELFPAY ==
--- NOTE | 2025-06-15 14:14 | A.OFFVIS_ITS ---
Intake Visit Reasons: 6M follow up/ PSA/PVR Intake Note: Patient is present for 6 mo follow up Urology Medication: Terazosin,Desmopression Antibiotic Allergy:NONE Blood Thinner:APIXABAN Labs done 12/25/24: BMP TODAY'S PVR:44ML'S Sap Administrator Required: No Accompanied by: Self / Same As Patient Allergies No Known Allergies Allergy (Verified 06/15/25 14:16) HPI Comments Details: Sebastien FLORES is a very pleasant male. He is a patient of Dr Mota. He is seen for the following urologic conditions. - lower urinary tract symptoms PVR low UA shows no infection Has been on furosemide in the mornings Discussed timing Continue DDAVP in the evening Link to incontinence supplies provided Lower Urinary Tract Symptoms:? Cystoscopy with grade 2 trabeculation Had laser incision of the prostate Noted chronic cystitis at time of procedure and placed on 90 days suppression trimethoprim ? Current visit is for?further evaluation of, lower urinary tract symptoms, predominate obstructive symptoms.? Current treatment includes?08/03 , medication, alpha sandra, 5-AR.? Symptoms include?08/03 , weak stream, urine loss, nocturia (>2), and are progressing.? Results from testing include? renal/bladder us ?Yes ? date ?08/29/2019 ? PVR ?15 ? prostate size ?20 ? Testing at next visit will include?bladder scan.? PFSH Medical History Hyperlipidemia HTN (hypertension) BPH (benign prostatic hyperplasia) Urinary leakage Urgency incontinence Bladder outlet obstruction Surgical History History of surgery Social History Patient Tobacco Use Status: Never used Tobacco Review of Systems Const Denies chills and Denies fever(s) Card Reports no additional complaints and Denies syncope Resp Denies cough GI Denies abdominal pain and Denies heartburn Reports as per HPI and Denies change in libido Neuro Denies syncope Psych Denies change in libido Endo Denies change in libido Physical Exam Const General: cooperative, healthy appearing, comfortable and no acute distress Orientation/consciousness: patient oriented x3 HEENT Face and sinus: Yes normal facial exam Mouth: moist mucous membranes Neck Neck: Yes normal visual inspection, Yes full ROM and Yes trachea midline Chest Chest palpation & inspection: normal inspection of the chest Resp Effort & Inspection: normal respiratory effort, able to speak in complete sentences and no respiratory distress GI Inspection: Yes normal to inspection Back/Spine/Pelvis Cervical Spine: normal cervical lordosis Thoracic/Lumbar Spine: thoracic and lumbar spine normal to inspection Skin General skin exam: no rashes or lesions noted Neuro General: patient oriented x3, gait normal, tone normal and moves all extremities Extrem General: Yes normal to inspection and Yes capillary refill normal Office Procedures Post Void Residual Post Residual Void Post Void Residual (PVR): 44 [id number] Void Residual by ultrasound Results AMB Urinalysis, Automated UA Leukoctes 0 Nereyda/uL Last Edit by Jerica Alvarez [facility] on 06/15/25 14:32 UA Nitrite Negative Last Edit by Jerica Alvarez [facility] on 06/15/25 14:32 UA Urobilinogen 0.2 mg/dL Last Edit by Jerica Alvarez [facility] on 06/15/25 14:32 UA Protein 0 mg/dL Last Edit by Jerica Alvarez [facility] on 06/15/25 14:32 UA pH 6.0 Last Edit by Jerica Alvarez [facility] on 06/15/25 14:32 UA Blood 0 Reinaldo/uL Last Edit by Jerica Alvarez [facility] on 06/15/25 14:32 UA Specific Crestline 1.015 Last Edit by Jerica Alvarez [facility] on 06/15/25 14:3 2 UA Ketone Negative Last Edit by Jerica Alvarez [facility] on 06/15/25 14:32 UA Bilirubin 0 mg/dL Last Edit by Jerica Alvarez [facility] on 06/15/25 14:32 UA Glucose 0 mg/dL Last Edit by Jerica Alvarez [facility] on 06/15/25 14:32 Results Reviewed Results Reviewed: Laboratory Last Values Urine pH (Auto) 6.0 06/15/25 14:32 Specific Crestline (Auto) 1.015 06/15/25 14:32 Urine Protein (Auto) 0 mg/dL 06/15/25 14:32 Glucose (UA)(Auto) 0 mg/dL 06/15/25 14:32 Urine Ketones (Auto) Negative 06/15/25 14:32 Urine Blood (Auto) 0 Reinaldo/uL 06/15/25 14:32 Urine Nitrite (Auto) Negative 06/15/25 14:32 Urine Bilirubin (Auto) 0 mg/dL 06/15/25 14:32 Urine Urobilinogen (Auto) 0.2 mg/dL 06/15/25 14:32 Leukocyte Esterase (Auto) 0 Nereyda/uL 06/15/25 14:32 Assessment & Plan Assessment & Plan (1) Nocturia more than twice per night: Code(s): R35.1 - Nocturia Category: Medical (2) Urgency incontinence: Code(s): N39.41 - Urge incontinence Category: Medical Plan Six-month follow-up Medications: Changed From desmopressin 0.1 mg PO BEDTIME 30 days 30 tabs 1RF R35.1 - Nocturia To desmopressin 0.1 mg PO BEDTIME 90 tabs 1RF 90 days R35.1 - Nocturia Patient Instructions: This note is constructed using voice recognition software. While every effort has been made to ensure accuracy office copy selector errors may have been included. Imaging studies, laboratory and physical exam results were discussed and reviewed in detail. No major barriers to patient understanding were identified. An opportunity to ask questions regarding the treatment plan was provided. All questions were answered. The patient expressed understanding and agreement with the above treatment plan. The patient is aware they should contact our office by phone for worsening of their current condition or the appearance of new urologic symptoms. Compliance is encouraged with any medications and followup testing that is ordered. It is a privilege to participate in the urologic care of your patient. If you have any questions or concerns regarding treatment for the above conditions, or other urologic issues, please do not hesitate to contact me. The office telephone contact is [phone]. Sincerely, Dr Rommel Metzger MD, [facility] - Urology Compassionate Specialist Care for the Genitourinary System Coding Level of Care Code Est Pt Level 3 (02762) Complex EM visit Add On G2211 Diagnoses Nocturia more than twice per night R35.1 Urgency incontinence N39.41 CPT Codes Post Residual Void - PVR CPT Code: 64890-Bbcn Void Residual by ultrasound ([id number])
== END 2025-06-15 14:59 | disposition home or self-care (01) ==
LOC: HO.HUSH 14:15
PROVIDERS: PCP Internal Medicine; Visit Provider Urology
DX: R35.1 Nocturia (principal); N39.41 Urge incontinence
CPT/HCPCS: 99213

== ENCOUNTER → 2025-06-15 14:14 | Outpatient (BNVA) | payer BC, SELFPAY | PROVIDERS: PCP Internal Medicine; Visit Provider Urology | DX: R35.1 Nocturia (principal) | CPT/HCPCS: 51798 ==